=== PATIENT | female | born 1950 | race Caucasian/White ===

== ENCOUNTER 2022-05-22 03:59 | Inpatient (IN) | payer OTHER ==
[2022-05-22] MEDS ORDERED: BACITRACIN ZINC 15 GM TUBE TOPICAL OINTMENT ONE (12:47)
[2022-05-22] MEDS ORDERED: GENTAMICIN SO4 80 MG/2 ML VIAL ONE (13:11)
[2022-05-22] MEDS ORDERED: MIDAZOLAM HCL 2 MG/2 ML SINGLE DOSE VIAL ONE (13:14)
[2022-05-22] MEDS ORDERED: ceFAZolin SODIUM 1 GM VIAL ONE (13:33)
[2022-05-22] MEDS ORDERED: GENTAMICIN SO4 80 MG/2 ML VIAL IVPB ONE (13:37)
[2022-05-22] MEDS ORDERED: ceFAZolin SODIUM 1 GM VIAL IVPB ONE (13:37)
[2022-05-22] MEDS ORDERED: BACITRACIN ZINC 15 GM TUBE TOPICAL OINTMENT TP ONE (14:52)
[2022-05-22] MEDS ORDERED: oxyCODONE HCL 5 MG TABLET PO PRN (15:16)
[2022-05-22] MEDS ORDERED: ONDANSETRON 4 MG/2 ML VIAL IVPUSH PRN (15:16)
[2022-05-22] MEDS ORDERED: ACETAMINOPHEN 1000 MG/100 ML BAG IVPB ONE (15:17)
[2022-05-22] MEDS ORDERED: ACETAMINOPHEN INJECTION 100 ML IVPB ONE (15:23)
[2022-05-22] MEDS ORDERED: LACTATED RINGERS SOLUTION 1,000 ML IV SCH (15:30)
[2022-05-22] MEDS ORDERED: ACETAMINOPHEN 325 MG TABLET (FP) PO PRN (15:41)
[2022-05-23] MEDS: amLODIPine BESYLATE 10 MG TABLET (FP) PO SCH (06:33)
[2022-05-24] MEDS: amLODIPine BESYLATE 10 MG TABLET (FP) PO SCH (06:41)
[2022-05-24] MEDS ORDERED: ACETAMINOPHEN 325 MG TABLET (FP) PO PRN (09:18)
[2022-05-24] MEDS ORDERED: oxyCODONE HCL 5 MG TABLET PO PRN (09:18)
[2022-05-24] MEDS ORDERED: LACTATED RINGERS SOLUTION 1,000 ML/1,000 ML INFUS.BAG IV SCH (09:30)
[2022-05-24] MEDS ORDERED: ENOXAPARIN NA (PORCINE) 40 MG/0.4 ML DISP.SYRIN SQ SCH (11:00)
[2022-05-24] MEDS: FAMOTIDINE 20 MG TABLET PO SCH (11:34)
[2022-05-24 12:21] LABS: HEMATOCRIT 36.4 % (32.4-45.2); HEMOGLOBIN 12.1 GM/dL (10.7-15.3); MCHC 33.2 g/dl (32.0-36.0); MEAN CELL VOLUME 87.3 fl (80-96); MEAN PLT VOLUME 8.1 fl (7.5-11.1); PLATELET COUNT 185 10^3/uL (134-434); RBC 4.17 M/mm3 (3.60-5.2); RDW 14.7 % (11.6-15.6); WHITE BLOOD COUNT 10.6 K/mm3 (4.0-10.0)
[2022-05-24 12:46] LABS: ALBUMIN 3.4 g/dl (3.4-5.0); BLOOD UREA NITROGEN 11.3 mg/dL (7-18); CALCIUM 8.7 mg/dL (8.5-10.1)
[2022-05-24 12:48] LABS: CREATININE 0.6 mg/dL (0.55-1.3)
[2022-05-24 12:50] LABS: TOT PROT 6.8 g/dl (6.4-8.2)
[2022-05-24] MEDS: ROSUVASTATIN CA 20 MG TABLET PO SCH (22:08)
[2022-05-24] MEDS: ENOXAPARIN NA (PORCINE) 100 MG/1 ML DISP.SYRIN SQ SCH (23:59)
[2022-05-25] MEDS: amLODIPine BESYLATE 10 MG TABLET (FP) PO SCH (06:18)
[2022-05-25] MEDS: FAMOTIDINE 20 MG TABLET PO SCH (10:12)
[2022-05-25] MEDS: ENOXAPARIN NA (PORCINE) 100 MG/1 ML DISP.SYRIN SQ SCH ×2 (11:27→22:38)
[2022-05-25 11:51] VITALS: BMI 39.6
[2022-05-25] MEDS: ROSUVASTATIN CA 20 MG TABLET PO SCH (22:24)
[2022-05-26] MEDS: amLODIPine BESYLATE 10 MG TABLET (FP) PO SCH (06:12)
[2022-05-26 07:29] LABS: BASO % 0.6 % (0-2.0); EOS % 2.6 % (0-4.5); HEMATOCRIT 34.7 % (32.4-45.2); HEMOGLOBIN 11.9 GM/dL (10.7-15.3); LYMPH % 27.1 % (8-40); MCH 29.6 pg (25.7-33.7); MCHC 34.2 g/dl (32.0-36.0); MEAN CELL VOLUME 86.6 fl (80-96); MEAN PLT VOLUME 8.2 fl (7.5-11.1); MONO % 6.7 % (3.8-10.2); PLATELET COUNT 198 10^3/uL (134-434); RBC 4.01 M/mm3 (3.60-5.2); RDW 14.4 % (11.6-15.6); WHITE BLOOD COUNT 10.5 K/mm3 (4.0-10.0)
[2022-05-26 07:58] LABS: CALCIUM 8.9 mg/dL (8.5-10.1)
[2022-05-26 07:59] LABS: ALBUMIN 3.2 g/dl (3.4-5.0); BLOOD UREA NITROGEN 10.8 mg/dL (7-18)
[2022-05-26 08:01] LABS: CREATININE 0.6 mg/dL (0.55-1.3)
[2022-05-26 08:02] LABS: BILIRUBIN,TOTAL 1.4 mg/dL (0.2-1); TOT PROT 6.8 g/dl (6.4-8.2)
[2022-05-26] MEDS: FAMOTIDINE 20 MG TABLET PO SCH (09:28)
[2022-05-26 09:38] VITALS: RESP 18
[2022-05-26] MEDS: ENOXAPARIN NA (PORCINE) 100 MG/1 ML DISP.SYRIN SQ SCH ×2 (12:47→23:46)
[2022-05-26] MEDS: ROSUVASTATIN CA 20 MG TABLET PO SCH (22:17)
[2022-05-27 07:47] LABS: BASO % 0.5 % (0-2.0); HEMATOCRIT 33.7 % (32.4-45.2); HEMOGLOBIN 11.6 GM/dL (10.7-15.3); LYMPH % 36.9 % (8-40); MCH 29.9 pg (25.7-33.7); MCHC 34.5 g/dl (32.0-36.0); MEAN CELL VOLUME 86.7 fl (80-96); MEAN PLT VOLUME 7.9 fl (7.5-11.1); MONO % 6.9 % (3.8-10.2); NEUT % 52.7 % (42.8-82.8); PLATELET COUNT 203 10^3/uL (134-434); RBC 3.88 M/mm3 (3.60-5.2); RDW 14.4 % (11.6-15.6); WHITE BLOOD COUNT 8.8 K/mm3 (4.0-10.0)
[2022-05-27] MEDS: amLODIPine BESYLATE 10 MG TABLET (FP) PO SCH (07:47)
[2022-05-27 08:15] LABS: BLOOD UREA NITROGEN 11.4 mg/dL (7-18); CALCIUM 8.7 mg/dL (8.5-10.1)
[2022-05-27 08:18] LABS: CREATININE 0.5 mg/dL (0.55-1.3)
[2022-05-27 08:20] LABS: BILIRUBIN,TOTAL 1.3 mg/dL (0.2-1); TOT PROT 6.4 g/dl (6.4-8.2)
[2022-05-27] MEDS: FAMOTIDINE 20 MG TABLET PO SCH (10:37)
[2022-05-27] MEDS: ENOXAPARIN NA (PORCINE) 100 MG/1 ML DISP.SYRIN SQ SCH (11:07)
[2022-05-27 14:16] VITALS: BP 138/75; PULSE 67; TEMP 98.1
== END 2022-05-27 16:47 | disposition home or self-care (01) | DRG 748 ==
LOC: SUATTDRO 03:59 → JASU-SURG 03:59 → JASUSAT 03:59 → J7W 17:33 → JASUSAT 17:34 → J7W 17:34 → J4W 05-25 13:08
PROC: 0TSB0ZZ Reposition Bladder, Open Approach (ICD-10-PCS; 2022-05-22)
PROC: 0JQC0ZZ Repair Pelvic Region Subcutaneous Tissue and Fascia, Open Approach (ICD-10-PCS; principal; 2022-05-22 10:00)
PROC: 0TSD0ZZ Reposition Urethra, Open Approach (ICD-10-PCS; 2022-05-22 10:00)
DX: N81.4 Uterovaginal prolapse, unspecified (principal); I26.99 Other pulmonary embolism without acute cor pulmonale; J96.01 Acute respiratory failure with hypoxia; I24.8 Other forms of acute ischemic heart disease; N39.3 Stress incontinence (female) (male); I10 Essential (primary) hypertension; E78.5 Hyperlipidemia, unspecified; K21.9 Gastro-esophageal reflux disease without esophagitis; R42 Dizziness and giddiness; I95.81 Postprocedural hypotension; Z68.39 Body mass index [BMI] 39.0-39.9, adult; E66.9 Obesity, unspecified; E87.70 Fluid overload, unspecified
CPT/HCPCS: 0241U-QW; 36415; 71045-TC-FY; 71275-TC; 80053; 82962; 84484; 85025; 85027; 85379; 88302-TC; 93005; 93010; 93306-TC; 93970-TC; 94760; 94761; 97116-GP; 97161-GP; C1771; Q9967